=== PATIENT | male | born 1975 | race Hispanic/Latino ===

== ENCOUNTER 2023-12-24 11:44 | Emergency (ER) | payer SELFPAY ==
[2023-12-24 11:49] VITALS: BP 121/86
[2023-12-24 12:05] LABS: % Basophils 0.5 % (0-2); % Eosinophils 1.5 % (0-6); % Immature Granulocytes 0.2 % (0-0.5); % Monocytes 4.7 % (1.7-9.3); % Neutrophils 57.1 % (42.2-75.2); Absolute Eosinophils 0.1 10^3/uL (0-0.7); Absolute Lymphocytes 2.4 10^3/uL (1.2-3.4); Absolute Monocytes 0.3 10^3/uL (0.1-0.6); Absolute Neutrophils 3.8 10^3/uL (1.4-6.5); Hematocrit 42.2 % (39.0-52.0); Hemoglobin 14.5 g/dL (13.0-18.0); Mean Corp Hgb Conc. 34.4 g/dL (33.0-37.0); Mean Corpuscular Hgb 32.5 pg (27.0-31.0); Mean Corpuscular Volume 94.6 fL (80.0-94.0); Mean Platelet Volume 10.3 fL (7.4-10.4); Nucleated Red Blood Cells % 0 % (-); Platelet Count 184 10^3/uL (130-400); Red Blood Cell Count 4.46 10^6/uL (4.70-6.10); Red Cell Dist. Width 13.5 % (11.5-14.5); White Blood Cell Count 6.6 10^3/uL (4.8-10.8)
[2023-12-24 12:22] LABS: ALT (SGPT) 78 U/L (0-50); AST (SGOT) 66 U/L (17-59); Albumin 4.5 g/dl (3.5-5.0); Alkaline Phosphatase 188 U/L (38-126); Blood Urea Nitrogen 11 mg/dl (9-20); Calcium 9.3 mg/dl (8.4-10.2); Carbon Dioxide 19 mmol/L (22-30); Chloride 104 mmol/L (98-107); Glucose 248 mg/dl (70-99); Sodium 137 mmol/L (135-145); Total Bilirubin 0.4 mg/dl (0.2-1.3); Total Protein 8.7 g/dl (6.3-8.2); eGFR > 60.00
--- NOTE | 2023-12-24 13:00 | EDRN ---
Received patient on stretcher. patient stated that he has had swelling of the right side of his neck for about 2-3 weeks. Patient denies SOB,throat swelling,pain and difficulty swallowing.
--- NOTE | 2023-12-24 13:40 | ED.GENMED ---
History of Present Illness
General
Chief Complaint: Skin Problem
Source: patient
Exam Limitations: none
Time Seen by Provider: 12/24/23 13:18
Nursing documentation reviewed up to this point in time: agreed with
Travel History
Have you had any contact with someone who has COVID-19?: No
Do you have any symptoms of coronavirus? Fever > 100 degrees, chills, cough, shortness of breath, sore throat, loss of taste or smell, muscle aches, or headache?: No
History of Present Illness
History of Present Illness:
Patient is a 48-year-old male who is both Afghan and Kiswahili speaking, no chronic medical problems, uninsured, presents for 2 to 3 weeks of swelling to his right neck. Patient says he has had some lumps in that area that started out small and have
grown in size. He has not noted fever, painful swallowing, voice change, ear pain, drainage from these areas. He denies history of diabetes. No recent unexplained weight loss
Past History
Past History
ED Past Medical History: None
ED Past Surgical History: None
Social History
Tobacco: Non-smoker
Alcohol: None
Drug: None
Personal:
Living: with family
Employment: Employed
Review of Systems
Review of Systems
Allergies reviewed?: Yes
All Other Systems: Not applicable
Phy Exam
Physical Exam
Physical Exam:
GENERAL: Alert , in no apparent distress
EYE: pupils equal and reactive
NECK: Supple
Patient has 2 large fluctuant masses to the right proximal anterior cervical chain which are measuring approximately 4 cm x 5 cm, it appears that they are not confluent
Patient also has a fluctuant smaller mass at the base of his right neck measuring 3 cm x 2 cm
He appears to have what looks like a healed incision to that area
There is no expressible purulence
ENT: Mucous membranes moist, moderate pharyngeal erythema, normal voice, no tonsillar exudate, TMs normal, no pre or posterior auricular lymphadenopathy or swelling
poor dentition
right lower molar fracture/avulsion, no periapical swelling
right upper molar decay, nontender, no obvious fluctuant abscess
CARDIAC: Mildly tachycardic.
LUNGS: Clear breath sounds bilaterally, no acute respiratory distress, no wheezes/rales/rhonchi
NEUROLOGICAL: Alert and oriented, no focal neuro deficits
SKIN: Warm and dry, the fluctuant abscesses/lymph nodes are slightly erythematous
PSYCH: Normal and appropriate interaction.
Course
Orders/Labs/Results
Orders:
Orders
12/24/23 11:54
CMP [Comprehensive Metabolic Panel] Urgent
Complete Blood Count/With Diff Urgent
Monotest Urgent
Comment: MONO ADDED ON BY FLOOR 1:30PM 12-24-23
12/24/23 13:33
CT Neck With Iv Contrast Urgent
Comment:
Reason For Exam: large abscesses vs. lymphadenitis right neck
12/24/23 13:35
Add On- LAB Urgent
Tests Added?: mono
0.9% Sodium Chloride 1000 ml [Nss] 1,000 ml IV BOLUS
12/24/23 14:26
BHB [B-Hydroxybutyrate] Urgent
Blood Culture Q30M
PORTIA Source: Blood/Venous
Specimen Description:
12/24/23 14:28
Lactic Acid Urgent
12/24/23 14:29
Blood Culture Q30M
PORTIA Source: Blood/Venous
Specimen Description:
12/24/23 17:03
Clindamycin HCl [Cleocin] 300 mg PO NOW STA
METFORMIN HCl [Glucophage] 500 mg PO NOW STA
Abnormal Lab Results
12/24/23 12/24/23
11:54 14:28
RBC 4.46 L 10^6/uL
(4.70-6.10)
MCV 94.6 H fL
(80.0-94.0)
MCH 32.5 H pg
(27.0-31.0)
Carbon Dioxide 19 L mmol/L
(22-30)
Creatinine 0.6 L mg/dL
(0.7-1.3)
Glucose 248 H mg/dl
(70-99)
Lactic Acid 2.1 H mmol/L
(0.7-2.0)
AST 66 H U/L
(17-59)
ALT 78 H U/L
(0-50)
Alkaline Phosphatase 188 H U/L
(38-126)
Total Protein 8.7 H g/dl
(6.3-8.2)
Monoscreen Positive A
(Negative)
12/24/23 11:54
12/24/23 11:54
Vital Signs
Initial and Last Documented VS:
Initial Vital Signs
Temp Pulse Resp BP Pulse Ox
98.4 F 108 16 121/86 98
12/24/23 11:49 12/24/23 11:49 12/24/23 11:49 12/24/23 11:49 12/24/23 11:49
Last Documented Vital Signs
Temp Pulse Resp BP Pulse Ox
99.1 F 79 18 153/98 98
12/24/23 17:20 12/24/23 17:20 12/24/23 17:20 12/24/23 17:20 12/24/23 17:20
MDM/Problems Addressed
Differential Diagnosis Includes:
lymphademinitis, neck abscesses, parotidis, malignancy, necrotizing infection
MDM/Problems Addressed:
48 y/o M with no chroni cmedical problems
here with 2-3 weeks of right sided neck swelling, multiple lumps in neck which are slightly painful but not limiting rom or swallwoing
no fever/chils
uninsured, no pcp
on exam pt has significant swelling in te anterior cervical chain right side proximal, not preauricular area but in the neck
pt has no submental swelling
no woody edema
but he has lateral nekc swelling and fluctuant abscesses
also swelling right supraclavicular region much smaller than proximal
able to swallow and speak normally
labs show that pt has hyperglycemia 250 without known history of DM
ct scan and cultures ordered
pt had lactate of 2.1
ct shows denta abscess with maxillary lytic lesion c/w acute osteo of the maxilla and multiple neck abscesses, cannot r/o malignancy
informed aptient of results
unfortunately despite using digital media associate and going into detail regarding risks of leaving, pt wanted to leave AMA
he says that he has to work and he will come back nex tweek
i told him that he was risking sepsis, airway compromise, , risking bony extension of osteo
he is aware of risks
he also was mad eaware of his new dx of dm but does not believe he has diabetes
this was witnessed conversation by his nurse gabriella
rx for clinda and metformin.
*Critical Care Note
Total Time (30-74mins, 75-104mins- exclusive of procedures): Not Applicable
ED Attending Note
-
Portions of this chart may have been created with voice recognition software.� Occasional wrong word or��sound alike� substitutions may have occurred due to the inherent limitations of voice recognition software.
Discharge Plan
Departure
Patient Disposition: Against Medical Advice
Date of Disposition: 12/24/23
Time of Disposition: 16:35
Condition: Serious
Covid-19: Not Applicable
Discharge Problem:
Abscess, dental, Acute osteomyelitis of maxilla, Abscess of neck, Left against medical advice
Instructions: High Blood Sugar, Adult (DC), Type 2 Diabetes (DC), Osteomyelitis (DC), Tooth Abscess (DC)
Prescriptions:
New
metformin 500 mg tablet
500 mg PO BID Qty: 60 0RF
clindamycin HCl 300 mg capsule
300 mg PO Q6H Qty: 40 0RF
Referrals:
NONE,* [Family Provider] -
Activity Restrictions/Additional Instructions:
You decided to leave AGAINST MEDICAL ADVICE. You have a serious infection in your mouth or around one of your teeth that is causing an infection in your bone. This can make you very ill. You also have multiple neck abscesses causing swelling of
your neck which is concerning that if it got worse it can compromise your airway.
You also appear to have diabetes. This is also new and would require close monitoring.
This type of infection is only usually treated with IV antibiotics which is why we wanted to admit you. The oral medication I am giving you may not be effective and I counseled you on the fact that you could have serious complications or
because you left AGAINST MEDICAL ADVICE.
Take the clindamycin 4 times a day for 10 days.
You also need to see an oral surgeon.
Start metformin 500 mg twice a day. You should monitor your sugar intake and avoid eating excess sugar.
Return for severe worsening of neck swelling, fever, inability to swallow, lethargy, weakness, voice change, or any concerns
Interventions
Interventions:
*Risk Screen - Suicide Last Done: 12/24/23 11:49
*General Assessment Last Done: 12/24/23 11:49
*Neglect/Abuse Screening Last Done: 12/24/23 11:49
ED- Fall Risk Assessment Last Done: 12/24/23 12:48
*ED COVID-19 Vaccine History Last Done: 12/24/23 11:49
*Nursing Disposition Last Done: 12/24/23 17:20
ED-Skin Assessment Last Done: 12/24/23 12:48
Discharge Date and Time
Discharge Date/Time: 12/24/23 17:25
Print Language: ENGLISH
[2023-12-24 14:00] VITALS: BP 138/80
[2023-12-24] MEDS: NSS 1000 IV (14:24)
[2023-12-24 14:50] LABS: Lactic Acid 2.1 mmol/L (0.7-2.0)
[2023-12-24 14:57] LABS: Monotest Positive (Negative)
[2023-12-24 15:00] VITALS: BP 141/72
[2023-12-24 15:10] LABS: B-Hydroxybutyrate 0.11 mmol/L (0.02-0.27)
[2023-12-24 16:59] VITALS: BP 153/98
--- NOTE | 2023-12-24 17:02 | EDRN ---
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 Patient verbalized understanding that he has a serious infection and can possibly get sicker and if he goes home. Patient stated
that he needs to feed his daughter.
[2023-12-24] MEDS: GLUCOPHAGE 500 MG PO (17:12)
[2023-12-24] MEDS: CLEOCIN 300 MG PO (17:12)
[2023-12-24 17:20] VITALS: BP 153/98
--- NOTE | 2023-12-24 17:20 | EDRN ---
Reviewed discharge instructions with patient. Verbalized understanding. Ambulated with steady gait to the lobby.
== END 2023-12-24 17:25 | disposition left against medical advice (07) ==
LOC: EMR 11:44
PROVIDERS: Emergency Medicine; Physician Assistant; EMERGENCY PHYSICIAN Emergency Medicine
DX: K04.7 Periapical abscess without sinus (principal); M27.2 Inflammatory conditions of jaws; L02.11 Cutaneous abscess of neck; Z53.29 Procedure and treatment not carried out because of patient's decision for other reasons
CPT/HCPCS: 99284; 96360; 70491; 80053; 82010; 83605; 85025; 86308; 87040; Q9967

== ENCOUNTER 2024-02-13 07:18 | Emergency (ER) | payer SELFPAY ==
[2024-02-13 07:28] VITALS: BP 135/83
--- NOTE | 2024-02-13 09:48 | ED.GENMED ---
History of Present Illness
General
Chief Complaint: Skin Problem
Source: patient
Exam Limitations: none
Time Seen by Provider: 02/13/24 09:44
Nursing documentation reviewed up to this point in time: agreed with
Travel History
Have you had any contact with someone who has COVID-19?: No
Do you have any symptoms of coronavirus? Fever > 100 degrees, chills, cough, shortness of breath, sore throat, loss of taste or smell, muscle aches, or headache?: No
History of Present Illness
History of Present Illness:
48-year-old male with history of potential diabetes diagnosed here in the ER 2 months ago presenting to the emergency department today with concerns of worsening swelling and discomfort to his right neck over the past 2 months. Apparently left AMA
after evaluation here 2 months ago and they found a mass possible abscess to the right neck where he was prescribed clindamycin and metformin he claims he took these medications but has had ongoing symptoms claims that he had some subjective fevers
and chills but denies any swallowing or breathing.. He has not had any follow-up otherwise.
Past History
Past History
ED Past Medical History: None
ED Past Surgical History: None
Social History
Tobacco: Non-smoker
Alcohol: None
Drug: None
Personal:
Living: with family
Employment: Employed
Review of Systems
Review of Systems
Allergies reviewed?: Yes
All Other Systems: ROS reviewed and negative except as documented in HPI and ROS
Phy Exam
Physical Exam
Physical Exam:
GENERAL: Alert , in no apparent distress
EYE: pupils equal and reactive
NECK: Moderate swelling to the right side of the anterior neck fluctuant mass to the right anterior lower neck roughly 3 x 2 cm in size with tracking swelling and tenderness to the preauricular region. Supple, no significant adenopathy.
ENT: o/p clr, mmm.
CARDIAC: Regular rate and rhythm .
LUNGS: Clear breath sounds bilaterally, no acute respiratory distress, no wheezes/rales/rhonchi
ABDOMEN: Soft, without focal tenderness, no r/g, no cvat
NEUROLOGICAL: Alert and oriented, no focal neuro deficits
SKIN: Warm and dry, skin intact.
MUSCULOSKELETAL: No edema, well perfused.
PSYCH: Normal and appropriate interaction.
Course
Orders/Labs/Results
Orders:
Orders
02/13/24 09:[address] [CT Neck With Iv Contrast] Urgent
Comment:
Reason For Exam: right neck swelling redness
02/13/24 09:59
CBC/With Diff [Complete Blood Count/With Diff] Urgent
02/13/24 10:45
Comprehensive Metabolic Panel Urgent
02/13/24 16:51
Acid Fast Culture & Smear Routine
PORTIA Source: Abscess
Specimen Description:
Date Specimen was Collected: 02/13/24
Time Specimen was Collected: 16:52
Anaerobic Culture Routine
PORTIA Source: Abscess
Specimen Description:
Date Specimen was Collected: 02/13/24
Time Specimen was Collected: 16:52
Wound/Abscess/Other Culture Routine
PORTIA Source: Abscess
Specimen Description:
Date Specimen was Collected: 02/13/24
Time Specimen was Collected: 16:52
Abnormal Lab Results
02/13/24 02/13/24
09:59 10:45
RBC 4.66 L 10^6/uL
(4.70-6.10)
MCV 98.1 H fL
(80.0-94.0)
MCH 32.8 H pg
(27.0-31.0)
MPV 10.8 H fL
(7.4-10.4)
Chloride 109 H mmol/L
(98-107)
Carbon Dioxide 20 L mmol/L
(22-30)
Creatinine 0.5 L mg/dL
(0.7-1.3)
Glucose 105 H mg/dl
(70-99)
AST 71 H U/L
(17-59)
ALT 83 H U/L
(0-50)
Alkaline Phosphatase 177 H U/L
(38-126)
Total Protein 8.5 H g/dl
(6.3-8.2)
02/13/24 09:59
02/13/24 10:45
Vital Signs
Initial and Last Documented VS:
Initial Vital Signs
Temp Pulse Resp BP Pulse Ox
97.9 F 75 16 135/83 98
02/13/24 07:28 02/13/24 07:28 02/13/24 07:28 02/13/24 07:28 02/13/24 07:28
Last Documented Vital Signs
Temp Pulse Resp BP Pulse Ox
97.9 F 75 16 135/83 98
02/13/24 07:28 02/13/24 07:28 02/13/24 07:28 02/13/24 07:28 02/13/24 07:28
MDM/Problems Addressed
MDM/Problems Addressed:
48-year-old male history of diabetes presenting to the emergency department with ongoing and progressive swelling redness and discomfort to the right anterior neck initially diagnosed 2 months ago took clindamycin but has had worsening recently has
not had any particular follow-up. Denies any trouble swallowing or breathing. Normal vital signs upon arrival.
Patient CT scan showing submandibular abscess. Case was discussed with ENT that will come see the patient in the evening today. Patient was notified of this and will stay for assessment here.
Patient was subsequently seen by the ENT doctor had his abscess drained and will follow-up closely tomorrow and also written for antibiotics. Patient tolerated well and otherwise is discharged in stable condition.
*Critical Care Note
Total Time (30-74mins, 75-104mins- exclusive of procedures): Not Applicable
ED Attending Note
-
Portions of this chart may have been created with voice recognition software.� Occasional wrong word or��sound alike� substitutions may have occurred due to the inherent limitations of voice recognition software.
Discharge Plan
Departure
Patient Disposition: Home (Routine Discharge)
Date of Disposition: 02/13/24
Time of Disposition: 17:13
Patient with high blood pressure during this ER visit?: No
Condition: Good
Covid-19: Not Applicable
Discharge Problem:
Abscess, neck
Instructions: Skin Abscess
Prescriptions:
No Action
metformin 500 mg tablet
500 mg PO BID Qty: 60 0RF
clindamycin HCl 300 mg capsule
300 mg PO Q6H Qty: 40 0RF
Referrals:
Dereck Moore MD [Active] - Tomorrow
NONE,* [Family Provider] -
Activity Restrictions/Additional Instructions:
You can to the emergency department today with concerns of an abscess to your neck. This was drained by the ENT doctor and you should follow-up at your scheduled appointment moving forward. Return to the emergency department for any worsening, new
or concerning symptoms.
Interventions
Interventions:
*Risk Screen - Suicide Last Done: 02/13/24 11:21
*General Assessment Last Done: 02/13/24 11:21
*Neglect/Abuse Screening Last Done: 02/13/24 11:21
ED- Fall Risk Assessment Last Done: 02/13/24 11:21
*ED COVID-19 Vaccine History Last Done: 02/13/24 11:21
ED-Skin Assessment Last Done: 02/13/24 10:02
Discharge Date and Time
Print Language: TAJIK
[2024-02-13 10:13] LABS: % Basophils 0.4 % (0-2); % Eosinophils 2.2 % (0-6); % Immature Granulocytes 0.4 % (0-0.5); % Lymphocytes 31.3 % (20.5-51.1); % Monocytes 8.1 % (1.7-9.3); % Neutrophils 57.6 % (42.2-75.2); Absolute Eosinophils 0.2 10^3/uL (0-0.7); Absolute Lymphocytes 2.3 10^3/uL (1.2-3.4); Absolute Monocytes 0.6 10^3/uL (0.1-0.6); Absolute Neutrophils 4.2 10^3/uL (1.4-6.5); Hematocrit 45.7 % (39.0-52.0); Hemoglobin 15.3 g/dL (13.0-18.0); Mean Corp Hgb Conc. 33.5 g/dL (33.0-37.0); Mean Corpuscular Hgb 32.8 pg (27.0-31.0); Mean Corpuscular Volume 98.1 fL (80.0-94.0); Mean Platelet Volume 10.8 fL (7.4-10.4); Nucleated Red Blood Cells % 0 % (-); Platelet Count 182 10^3/uL (130-400); Red Blood Cell Count 4.66 10^6/uL (4.70-6.10); Red Cell Dist. Width 13.8 % (11.5-14.5); White Blood Cell Count 7.2 10^3/uL (4.8-10.8)
[2024-02-13 11:07] LABS: ALT (SGPT) 83 U/L (0-50); AST (SGOT) 71 U/L (17-59); Albumin 4.6 g/dl (3.5-5.0); Alkaline Phosphatase 177 U/L (38-126); Blood Urea Nitrogen 11 mg/dl (9-20); Calcium 9.4 mg/dl (8.4-10.2); Carbon Dioxide 20 mmol/L (22-30); Chloride 109 mmol/L (98-107); Glucose 105 mg/dl (70-99); Potassium 4.1 mmol/L (3.5-5.1); Sodium 141 mmol/L (135-145); Total Bilirubin 0.5 mg/dl (0.2-1.3); Total Protein 8.5 g/dl (6.3-8.2); eGFR > 60.00
--- NOTE | 2024-02-13 17:17 | CON.MD ---
Consultation - Medical
-
dictated.
multiple draining fistulae in R neck and a cold abscess, I&D'ed
This could very well be scrofula.
will remove packing in office tomorrow. script for keflex given. sent aerobic and anaerobic cx, AFB stain and culture.
== END 2024-02-13 17:32 | disposition home or self-care (01) ==
LOC: EMR 07:18
PROVIDERS: Physician Assistant; EMERGENCY PHYSICIAN Emergency Medicine
DX: L02.11 Cutaneous abscess of neck (principal); E11.9 Type 2 diabetes mellitus without complications
CPT/HCPCS: 99284; 70491; 80053; 85025; 87070; 87075; 87205; Q9967